=== PATIENT | male | born 1960 | race Caucasian/White ===

== ENCOUNTER → 2024-02-14 06:16 | Outpatient (REF) | payer BC, SELFPAY ==
[2024-02-14 07:45] LABS: Urine Albumin Negative (Neg - Trace); Urine Bilirubin Negative (Negative); Urine Character Clear (Clear); Urine Color Yellow; Urine Glucose Negative (Negative); Urine Ketone Negative (Negative); Urine Leukocyte Negative (Negative); Urine Nitrite Negative (Negative); Urine Occult Blood Negative (Negative); Urine Specific Gravity 1.025 (<1.030); Urine Urobilinogen Negative (Neg - 1+)
[2024-02-14 07:55] LABS: % Basophils 0.5 % (0-2); % Eosinophils 1.9 % (0-6); % Immature Granulocytes 0.3 % (0-0.5); % Lymphocytes 27.7 % (20.5-51.1); % Neutrophils 59.6 % (42.2-75.2); Absolute Eosinophils 0.1 10^3/uL (0-0.7); Absolute Lymphocytes 1.6 10^3/uL (1.2-3.4); Absolute Monocytes 0.6 10^3/uL (0.1-0.6); Absolute Neutrophils 3.5 10^3/uL (1.4-6.5); Hematocrit 46.4 % (39.0-52.0); Hemoglobin 16.3 g/dL (13.0-18.0); Mean Corp Hgb Conc. 35.1 g/dL (33.0-37.0); Mean Corpuscular Hgb 34.1 pg (27.0-31.0); Mean Corpuscular Volume 97.1 fL (80.0-94.0); Mean Platelet Volume 10.7 fL (7.4-10.4); Nucleated Red Blood Cells % 0 % (-); Platelet Count 143 10^3/uL (130-400); Red Blood Cell Count 4.78 10^6/uL (4.70-6.10); Red Cell Dist. Width 12.4 % (11.5-14.5); White Blood Cell Count 5.9 10^3/uL (4.8-10.8)
[2024-02-14 08:02] LABS: ALT (SGPT) 36 U/L (0-50); AST (SGOT) 61 U/L (17-59); Albumin 4.7 g/dl (3.5-5.0); Alkaline Phosphatase 49 U/L (38-126); Blood Urea Nitrogen 24 mg/dl (9-20); Calcium 9.8 mg/dl (8.4-10.2); Carbon Dioxide 29 mmol/L (22-30); Chloride 103 mmol/L (98-107); Glucose 85 mg/dl (70-99); HDL Cholesterol 38 mg/dl; LDL Cholesterol, Calculated 56 mg/dl; Potassium 4.3 mmol/L (3.5-5.1); Sodium 140 mmol/L (135-145); Total Bilirubin 0.7 mg/dl (0.2-1.3); Total Cholesterol 113 mg/dl (50-199); Total Protein 6.9 g/dl (6.3-8.2); Triglyceride 95 mg/dl (10-149); Very Low Density Lipoprotein 19 mg/dl (0-30); eGFR > 60.00
[2024-02-14 08:42] LABS: PSA, Total - Screen 9.41 ng/ml (0.0-4.0)
[2024-02-14 09:23] LABS: TSH Reflex To Free T4 1.66 uIU/ml (0.47-4.68)
== END ==
LOC: REG 06:16
PROVIDERS: ATTENDING PHYSICIAN Emergency Medicine; REFERRING PHYSICIAN Internal Medicine Cardiovascular Disease
DX: Z00.00 Encounter for general adult medical examination without abnormal findings (principal)
CPT/HCPCS: 36415; 80053; 80061; 81003; 84443; 85025; G0103

== ENCOUNTER 2024-04-28 10:14 | Outpatient (RCR) | payer MEDICARE, BC, SELFPAY | END 2024-05-15 07:16 | disposition home or self-care (01) | LOC: RPT 10:14 | PROVIDERS: ATTENDING PHYSICIAN Orthopaedic Surgery; FAMILY PHYSICIAN Emergency Medicine | DX: S42.001D Fracture of unspecified part of right clavicle, subsequent encounter for fracture with routine healing (principal); Z73.6 Limitation of activities due to disability | CPT/HCPCS: 97110; 97162 ==

== ENCOUNTER → 2024-05-30 06:28 | Outpatient (REF) | payer MEDICARE, BC, SELFPAY ==
[2024-05-30 08:23] LABS: ALT (SGPT) 35 U/L (0-50); AST (SGOT) 55 U/L (17-59)
== END ==
LOC: REG 06:28
PROVIDERS: ATTENDING PHYSICIAN Emergency Medicine; OTHER PHYSICIAN Internal Medicine Cardiovascular Disease
DX: Z79.899 Other long term (current) drug therapy (principal)
CPT/HCPCS: 36415; 84450; 84460

== ENCOUNTER 2025-03-03 15:40 | Emergency (ER) | payer MEDICARE, BC, SELFPAY ==
[2025-03-03 15:44] VITALS: BP 131/87
--- NOTE | 2025-03-03 18:23 | ED.MUSCINJ ---
HPI-Injury
General
Chief Complaint: Musculo-Skeletal Complaint
Source: patient
Time Seen by Provider: 03/03/25 18:00
History of Present Illness-Injury
Initial Injury comments:
64 year old male presents with low back pain worsening over the past several days. No bowel or bladder dysfunction. No injury or fever. Admits to long drive recently after moving his daughter into a house. No anesthesia in the legs. He has
intermittent history of back pain like this that tends to resolve on its own however this 1 is not. He tried Tylenol without relief. He is on Eliquis for A-fib.
Past History
Past History
ED Past Medical History: Arrthythmia (atrial fibrillation)
ED Past Surgical History: Cardiac (cardiac ablation) and Tonsilectomy
Social History
Tobacco: Non-smoker
Alcohol: None
Drug: None
Personal:
Living: with family
Phy Exam
Physical Exam
Physical Exam:
General: Well-appearing male no acute respiratory distress
HEENT: Normocephalic atraumatic
Musculoskeletal exam: Paraspinous spasm noted of the right lumbar spine. No midline tenderness good range of motion to the lower extremities
Vascular: 2+ DP pulse bilateral feet
Neurologic exam: Good sensation and strength to lower extremities
Skin is warm no rash
Injury Course
Orders/Labs/Results
Orders:
Orders
03/03/25 18:23
Diazepam [Valium] 5 mg PO NOW STA
Prednisone [Deltasone] 50 mg PO NOW STA
MDM/Problems Addressed
Differential Diagnosis Includes:
Low back pain. No red flags to suggest cauda equina. No trauma to suggest fracture. Suspect lumbar strain. There is no leg pain to suggest radiculopathy. Patient cannot do NSAIDs secondary to anticoagulated status. Will do muscle relaxer and
steroid. Suggest lidocaine patches. Stable for discharge.
*Pulse Oximetry
SaO2: 99
Oxygen Mode of Delivery: Room air
Patient hypoxic: no
*Critical Care Note
Total Time (30-74mins, 75-104mins- exclusive of procedures): Not Applicable
ED Attending Note
-
Portions of this chart may have been created with voice recognition software.� Occasional wrong word or��sound alike� substitutions may have occurred due to the inherent limitations of voice recognition software.
Discharge Plan
Departure
Patient Disposition: Home (Routine Discharge)
Date of Disposition: 03/03/25
Time of Disposition: 18:29
Patient with high blood pressure during this ER visit?: No
Discharge Problem:
Lumbar strain
Instructions: Muscle and Bone Pain (DC)
Prescriptions:
New
diazepam [Valium] 5 mg tablet
5 mg PO Q8H PRN (Reason: muscle spasm) Qty: 10 0RF
prednisone 10 mg Tablet
See Rx Instructions .ROUTE .COMPLEX Qty: 30 0RF
Rx Instructions:
Take By Mouth:
40 mg daily x3 days, 30 mg daily x3 days,
20 mg daily x3 days, 10 mg daily x3 days.
No Action
ibuprofen [Advil] 200 MG tablet
200 mg PO PRN PRN (Reason: PAIN)
Briviact 50 mg tablet
50 mg PO BID Qty: 60 0RF
Eliquis 5 mg Tablet
5 mg PO BID
atorvastatin 40 mg Tablet
40 mg PO HS
pantoprazole [pantoprazole] 40 mg tablet,delayed release (DR/EC)
40 mg PO DAILY Qty: 14 0RF
Rx Instructions:
Daily for 2 weeks post procedure, then stop
Referrals:
Cassandra Ulloa CRNP [Family Provider, Family Practice]
Activity Restrictions/Additional Instructions:
Use warm compresses to the back. Consider Lidoderm patches for local pain relief. Take prednisone as directed. Use Valium as directed. Return if worse otherwise follow-up with your
Interventions
Interventions:
*Risk Screen - Suicide Last Done: 03/03/25 15:44
*Neglect/Abuse Screening Last Done: 03/03/25 15:44
Discharge Date and Time
Print Language: MOSOT[place]
[2025-03-03] MEDS: VALIUM 5 MG PO (18:38)
[2025-03-03] MEDS: DELTASONE 50 MG PO (18:38)
[2025-03-03 18:45] VITALS: BP 103/75
== END 2025-03-03 18:55 | disposition home or self-care (01) ==
LOC: EMR 15:40
PROVIDERS: EMERGENCY PHYSICIAN Emergency Medicine; FAMILY PHYSICIAN Nurse Practitioner Family
DX: S39.012A Strain of muscle, fascia and tendon of lower back, initial encounter (principal); X58.XXXA Exposure to other specified factors, initial encounter; I48.91 Unspecified atrial fibrillation; Z79.01 Long term (current) use of anticoagulants
CPT/HCPCS: 99283

== ENCOUNTER → 2025-04-11 06:51 | Outpatient (REF) | payer MEDICARE, BC, SELFPAY ==
[2025-04-11 07:42] LABS: Hematocrit 45.2 % (39.0-52.0); Hemoglobin 15.8 g/dL (13.0-18.0); Mean Corp Hgb Conc. 35.0 g/dL (33.0-37.0); Mean Corpuscular Volume 96.4 fL (80.0-94.0); Nucleated Red Blood Cells % 0 % (-); Platelet Count 166 10^3/uL (130-400); Red Cell Dist. Width 12.4 % (11.5-14.5)
[2025-04-11 07:43] LABS: Urine Character Clear (Clear)
[2025-04-11 07:55] LABS: Urine Red Blood Cell 0-2 /HPF (0-2); Urine White Cell 0-2 /HPF (0-5)
[2025-04-11 08:14] LABS: ALT (SGPT) 31 U/L (0-50); AST (SGOT) 44 U/L (17-59); Albumin 4.2 g/dl (3.5-5.0); Alkaline Phosphatase 52 U/L (38-126); Blood Urea Nitrogen 22 mg/dl (9-20); Calcium 9.5 mg/dl (8.4-10.2); Carbon Dioxide 29 mmol/L (22-30); Chloride 107 mmol/L (98-107); Glucose 85 mg/dl (70-99); HDL Cholesterol 32 mg/dl; LDL Cholesterol, Calculated 45 mg/dl; Potassium 4.2 mmol/L (3.5-5.1); Sodium 142 mmol/L (135-145); Total Protein 6.5 g/dl (6.3-8.2); Very Low Density Lipoprotein 24 mg/dl (0-30); eGFR > 60.00
[2025-04-11 08:40] LABS: PSA, Total - Screen 7.62 ng/ml (0.0-4.0)
== END ==
LOC: REG 06:51
PROVIDERS: ATTENDING PHYSICIAN Nurse Practitioner Family
DX: R97.20 Elevated prostate specific antigen [PSA] (principal); Z13.0 Encounter for screening for diseases of the blood and blood-forming organs and certain disorders involving the immune mechanism; Z13.89 Encounter for screening for other disorder; Z13.1 Encounter for screening for diabetes mellitus; E78.00 Pure hypercholesterolemia, unspecified; Z12.5 Encounter for screening for malignant neoplasm of prostate
CPT/HCPCS: 36415; 80053; 80061; 81003; 81015; 85025; G0103